=== PATIENT | female | born 1980 | race Caucasian/White ===

== ENCOUNTER 2024-07-24 20:20 | Inpatient (IN) | payer MEDICAID, OTHER ==
[~2024-07-24 20:20] MED LIST: Iopamidol-370 76% 500 ML MDV (1 ML CHARGE) ONE
[2024-07-24 20:48] LABS: Bilirubin Negative (Negative); Blood, Urine 2+ (Negative); CAUTI Indications for Culture Pelvic or flank pain; Clarity Turbid (Clear); Glucose, Urine (Dipstick) Normal (Negative); Ketone, Urine Negative (Negative); Leukocyte 500 Leu/uL (Negative); Nitrite 1+ (Negative); Protein, Urine (Dipstick) 100 mg/dL (Neg-Trace); Specific Gravity, Urine 1.025 (1.002-1.036); Urobilinogen Normal mg/dL (Less than 2); WBC/HPF Greater than 50 HPF (0-3); pH, Urine 5.5 (5.0-9.0)
[2024-07-24 21:03] LABS: Bacteria/HPF 2+ HPF (None Seen)
[2024-07-24 21:12] LABS: Yeast-Budding None Seen HPF (None Seen)
[2024-07-24 21:14] LABS: Urine Culture Reflex Yes Yes
[2024-07-24 21:19] LABS: Pregnancy Test - Urine (BHCG) Negative (Negative)
[2024-07-24 21:20] LABS: Pregu Control Background? CLEAR/WHITE (CLR/WHITE); Pregu Control Bar Appear? YES (CONTROL BAR); Specific Gravity 1.025 (1.002-1.036)
[2024-07-24 21:44] LABS: #Basophils 0.08 10x3/uL (0.0-0.2); %Basophils 0.5 % (0.0-1.0); %Eosinophils 1.8 % (0.0-10.0); %Lymphocytes 24.1 % (21.0-51.0); %Monocytes 6.8 % (0.0-10.0); %Neutrophils 66.4 % (42.0-75.0); Hematocrit 42.6 % (36.0-47.0); Hemoglobin 13.9 g/dL (12.0-16.0); Mean Corpuscular HGB CONC 32.6 g/dL (32.0-36.0); Mean Corpuscular Hemoglobin 29.3 pg (27.0-31.0); Mean Corpuscular Volume 89.7 fL (78.0-98.0); Mean Platelet Volume 10.4 fL (7.4-10.4); Platelet Count 297 10x3/uL (130-400); RBC Distribution Width 13.5 % (11.5-14.5); Red Blood Cell (RBC) Count 4.75 mill/uL (4.20-5.40)
[2024-07-24 21:56] LABS: Anion Gap 16 mmol/L (10-20); BUN (Urea Nitrogen) 19 mg/dL (7.0-18.7); Calc. Creatinine Clearance 0 mL/min (70-130); Carbon Dioxide 21 mmol/L (22-29); Chloride 109 mmol/L (98-107); Potassium 4.2 mmol/L (3.5-5.1); Sodium 142 mmol/L (136-145)
[2024-07-24 21:57] LABS: ALT (SGPT) 16 U/L (8-55); AST (SGOT) 11 U/L (5-34); Albumin 3.5 g/dL (3.5-5.0); Alkaline Phosphatase 89 U/L (40-110); Bilirubin, Total 0.3 mg/dL (0.2-1.2); Calcium 9.3 mg/dL (7.8-10.44); Estimated GFR 71; Globulin 3.4 g/dL (2.4-3.5); Glucose 136 mg/dL (70-105); Lipase 14 U/L (8-78); Protein, Total 6.9 g/dL (6.0-8.3)
[2024-07-24] MEDS ORDERED: Morphine 4 MG/ML VIAL ONE (22:24)
[2024-07-24] MEDS ORDERED: Ondansetron PF 4 MG/2 ML Vial ONE (22:24)
[2024-07-24] MEDS ORDERED: cefTRIAXone (ROCEPHIN) 2 GM VIAL ONE (22:24)
[2024-07-24] MEDS ORDERED: Sodium Chloride 0.9% 100 ML ONE (22:24)
[2024-07-24] MEDS ORDERED: Ketorolac Tromethamine 30 MG (1 mL) VIAL ONE (22:24)
[2024-07-25] MEDS ORDERED: Insulin Lispro 100 UNIT/ML 10 ML VIAL SC PRN (00:47)
[2024-07-25] MEDS ORDERED: Glucagon 1 MG/ML KIT IM PRN (00:47)
[2024-07-25] MEDS ORDERED: Dextrose 50% Abboject 50 ML SYRINGE SLOW IVP PRN (00:47)
[2024-07-25] MEDS ORDERED: Dextrose 5% in Water 1,000 ML IV PRN (00:47)
[2024-07-25] MEDS: Morphine 2 MG/ML VIAL SLOW IVP PRN ×2 (01:35→17:24)
[2024-07-25] MEDS: Lactated Ringer's 1,000 ML IV SCH (01:35)
[2024-07-25] MEDS ORDERED: Ondansetron PF 4 MG/2 ML Vial IVP PRN (03:22)
[2024-07-25] MEDS ORDERED: Iopamidol 15 ML ONE (07:45)
[2024-07-25] MEDS ORDERED: PROPOFOL 20 ML ONE (08:13)
[2024-07-25] MEDS ORDERED: fentaNYL 50 mcg/mL 1 mL Vial ONE (08:13)
[2024-07-25] MEDS ORDERED: SUCCINYLCHOLINE/SOD CL,ISO/PF 200 MG/10 ML SYRINGE FS ONE (08:13)
[2024-07-25] MEDS ORDERED: Lidocaine 2% PF 5 ML VIAL ONE (08:14)
[2024-07-25] MEDS ORDERED: Famotidine/PF 20 mg/2ml Vial ONE (08:22)
[2024-07-25] MEDS ORDERED: Rocuronium Bromide 10 MG/ML (10ML VIAL) ONE (08:46)
[2024-07-25] MEDS ORDERED: Esmolol 100 MG/10 ML VIAL ONE (08:55)
[2024-07-25] MEDS ORDERED: Ondansetron PF 4 MG/2 ML Vial ONE (09:00)
[2024-07-25] MEDS ORDERED: Losartan 25 MG TAB PO SCH (09:00)
[2024-07-25] MEDS ORDERED: SUGAMMADEX SODIUM 200 MG/2 ML VIAL ONE (09:01)
[2024-07-25] MEDS ORDERED: Promethazine HCl 25 MG/ML VIAL IM PRN (09:03)
[2024-07-25] MEDS ORDERED: Ondansetron HCl/PF 4 MG/2 ML Vial IVP PRN (09:03)
[2024-07-25] MEDS ORDERED: Ipratropium/Albuterol 3 ML NEB ONE (09:13)
[2024-07-25] MEDS ORDERED: Meperidine HCl/PF 25 MG (1 mL) VIAL ONE (09:26)
[2024-07-25] MEDS: Enoxaparin 40 MG (0.4 mL) SYRINGE SC SCH (09:31)
[2024-07-25] MEDS: Morphine 2 MG/ML VIAL SLOW IVP SCH (10:15)
[2024-07-25] MEDS: Phenazopyridine HCl 100 MG TAB PO SCH ×2 (10:17→17:25)
[2024-07-25] MEDS ORDERED: hydrALAZINE 25 MG TAB PO PRN (15:01)
[2024-07-25] MEDS: Senokot S 8.6-50 MG TAB PO SCH (20:43)
[2024-07-25] MEDS: rOPINIRole HCl 1 MG TAB PO SCH (20:43)
[2024-07-25] MEDS: cefTRIAXone\\ROCEPHIN 1 GM in Sodium Chloride 0.9% 100 ML IVPB SCH (23:02)
[2024-07-26] MEDS ORDERED: Phenazopyridine HCl 100 MG TAB PO PRN (06:32)
[2024-07-26 06:38] LABS: #Basophils 0.04 10x3/uL (0.0-0.2); %Basophils 0.4 % (0.0-1.0); %Eosinophils 1.6 % (0.0-10.0); %Lymphocytes 18.4 % (21.0-51.0); %Monocytes 9.3 % (0.0-10.0); %Neutrophils 69.9 % (42.0-75.0); Hematocrit 37.4 % (36.0-47.0); Hemoglobin 11.7 g/dL (12.0-16.0); Mean Corpuscular HGB CONC 31.3 g/dL (32.0-36.0); Mean Corpuscular Hemoglobin 29.3 pg (27.0-31.0); Mean Corpuscular Volume 93.7 fL (78.0-98.0); Mean Platelet Volume 11.4 fL (7.4-10.4); Platelet Count 201 10x3/uL (130-400); RBC Distribution Width 13.8 % (11.5-14.5); Red Blood Cell (RBC) Count 3.99 mill/uL (4.20-5.40)
[2024-07-26 06:57] LABS: Anion Gap 11 mmol/L (10-20); BUN (Urea Nitrogen) 11 mg/dL (7.0-18.7); Calc. Creatinine Clearance 155 mL/min (70-130); Calcium 8.6 mg/dL (7.8-10.44); Carbon Dioxide 25 mmol/L (22-29); Chloride 105 mmol/L (98-107); Estimated GFR 112; Glucose 135 mg/dL (70-105); Potassium 3.6 mmol/L (3.5-5.1); Sodium 137 mmol/L (136-145)
[2024-07-26] MEDS: Morphine 4 MG/ML VIAL SLOW IVP PRN (09:13)
[2024-07-26] MEDS ORDERED: Nitroglycerin 0.4 MG TAB (25 Tab Bottle) SL PRN (11:29)
[2024-07-26] MEDS ORDERED: Ipratropium/Albuterol 3 ML NEB NEB PRN (11:35)
[2024-07-26] MEDS ORDERED: Ibuprofen 200 MG TAB PO SCH (12:00)
[2024-07-26] MEDS: DULoxetine 30 MG CAP PO SCH (12:08)
[2024-07-26] MEDS: Aspirin 81 mg Enteric Coated Tablet PO SCH (12:08)
[2024-07-26] MEDS: Polyethylene Glycol 3350 17 GM Packet PO SCH (12:08)
[2024-07-26] MEDS: Morphine 2 MG/ML VIAL SLOW IVP PRN (12:57)
[2024-07-26] MEDS: busPIRone HCl 10 MG TAB PO SCH (14:49)
[2024-07-26] MEDS: Morphine 2 MG/ML VIAL SLOW IVP SCH (18:08)
[2024-07-26] MEDS: Loratadine 10 MG TAB PO SCH (18:41)
[2024-07-26] MEDS: diphenhydrAMINE 50 MG/ML VIAL IVP SCH (21:39)
[2024-07-26] MEDS: Bisacodyl 10 MG SUPP PR SCH (21:40)
[2024-07-26] MEDS: Famotidine 20 MG TAB PO SCH (21:40)
[2024-07-26] MEDS: lamoTRIgine 100 MG TAB PO SCH (21:40)
[2024-07-26] MEDS: Pregabalin 75 MG CAP PO SCH (21:40)
[2024-07-26] MEDS: Nystatin Powder 15 GM BOT TOP SCH (21:50)
[2024-07-26] MEDS: HYDROcodone/Acetaminophen 5/325 mg Tablet PO PRN (21:50)
[2024-07-26] MEDS: Fluticasone Propionate Nasal Spray 16 gm Bottle NASAL SCH (21:52)
[2024-07-26] MEDS: buPROPion HCl 100 MG TAB PO SCH (22:19)
[2024-07-26] MEDS: buPROPion 75 MG TAB PO SCH (22:23)
[2024-07-27 05:56] LABS: #Basophils 0.04 10x3/uL (0.0-0.2); %Basophils 0.4 % (0.0-1.0); %Eosinophils 2.1 % (0.0-10.0); %Lymphocytes 27.9 % (21.0-51.0); %Monocytes 10.1 % (0.0-10.0); Hematocrit 39.3 % (36.0-47.0); Hemoglobin 12.7 g/dL (12.0-16.0); Mean Corpuscular HGB CONC 32.3 g/dL (32.0-36.0); Mean Corpuscular Hemoglobin 28.9 pg (27.0-31.0); Mean Corpuscular Volume 89.3 fL (78.0-98.0); Mean Platelet Volume 10.7 fL (7.4-10.4); Platelet Count 272 10x3/uL (130-400); RBC Distribution Width 13.2 % (11.5-14.5)
[2024-07-27 06:10] LABS: Anion Gap 14 mmol/L (10-20); BUN (Urea Nitrogen) 10 mg/dL (7.0-18.7); Calc. Creatinine Clearance 141 mL/min (70-130); Calcium 8.9 mg/dL (7.8-10.44); Carbon Dioxide 26 mmol/L (22-29); Chloride 103 mmol/L (98-107); Estimated GFR 101; Glucose 130 mg/dL (70-105); Potassium 4.3 mmol/L (3.5-5.1); Sodium 139 mmol/L (136-145)
[2024-07-27 08:47] VITALS: BP 135/82; TEMP 97.9
[2024-07-27] MEDS: Clopidogrel Bisulfate 75 MG TAB PO SCH (08:47)
[2024-07-27] MEDS: Isosorbide Mononitrate 30 MG ER.TAB PO SCH (08:48)
[2024-07-27] MEDS: Aspirin 81 mg Enteric Coated Tablet PO SCH (08:48)
[2024-07-27] MEDS: Loratadine 10 MG TAB PO SCH (08:48)
[2024-07-27] MEDS: DULoxetine 60 MG CAP PO SCH (08:48)
[2024-07-27] MEDS: Polyethylene Glycol 3350 17 GM Packet PO SCH (08:49)
[2024-07-27] MEDS: Morphine 2 MG/ML VIAL SLOW IVP PRN (09:54)
[2024-07-27] MEDS ORDERED: Magnesium Citrate 300 ML BOT PO SCH (11:45)
[2024-07-27] MEDS: cefTRIAXone\\ROCEPHIN 1 GM in Sodium Chloride 0.9% 100 ML IVPB SCH (12:43)
== END 2024-07-27 14:09 | disposition home or self-care (01) | DRG 854 ==
LOC: ERS 20:20 → UNDOADMOB 23:45 → OBSVTOIN 23:45 → INTOOBSV 23:45 → T4-B 23:45 → OBSVTOIN 07-25 15:03
PROVIDERS: ADMIT Internal Medicine; ATTEND Internal Medicine
PROC: 0T768DZ Dilation of Right Ureter with Intraluminal Device, Via Natural or Artificial Opening Endoscopic (ICD-10-PCS; principal; 2024-07-25)
PROC: BT1D1ZZ Fluoroscopy of Right Kidney, Ureter and Bladder using Low Osmolar Contrast (ICD-10-PCS; 2024-07-25)
DX: A41.59 Other Gram-negative sepsis (principal); E87.20 Acidosis, unspecified; J96.11 Chronic respiratory failure with hypoxia; N13.6 Pyonephrosis; G89.29 Other chronic pain; M54.9 Dorsalgia, unspecified; E11.9 Type 2 diabetes mellitus without complications; I10 Essential (primary) hypertension; I25.10 Atherosclerotic heart disease of native coronary artery without angina pectoris; G25.81 Restless legs syndrome; E66.01 Morbid (severe) obesity due to excess calories; F17.290 Nicotine dependence, other tobacco product, uncomplicated; M79.7 Fibromyalgia; G47.30 Sleep apnea, unspecified; F43.10 Post-traumatic stress disorder, unspecified; F31.9 Bipolar disorder, unspecified; Z95.5 Presence of coronary angioplasty implant and graft; I25.2 Old myocardial infarction; Z68.33 Body mass index [BMI] 33.0-33.9, adult; Z88.8 Allergy status to other drugs, medicaments and biological substances; Z79.899 Other long term (current) drug therapy; Z90.49 Acquired absence of other specified parts of digestive tract; Z99.81 Dependence on supplemental oxygen
CPT/HCPCS: 36415; 36416; 74177; 74420; 80048; 80053; 81001; 81025; 83605; 83690; 85025; 87040; 87077; 87086; 87186; 93005; 96365; 96375; C2617; G0378; J0696; J1200; J1650; J1885; J2175; J2272; J2405; J2704; J3010; J3490; J7120; J7620; Q9967